=== PATIENT | female | born 1945 | race Caucasian/White ===

== ENCOUNTER → 2017-02-07 | Outpatient (CLI) | payer OTHER, BC ==
[~2017-02-07] VITALS: Ht 165.1 cm; Wt 113.4 kg
[~2017-02-07] MED LIST: BIOTIN 5000MCG PO; CITRACAL + D C1 EACH PO; FOLIC ACID1 MG PO; GLUCOSAMINE-CH1 EA44 PO; KRILL OIL500 MG PO; LO-DOSE ASPIRIN81 M2 PO; METHOTREXATE2.5 MG PO; MULTIPLE VITAM1 EAC4 PO; PLAQUENIL200 MG PO; PROBIOTIC FORM1 EAC1 PO; REMICADE10 MG/ML IV; SYNTHROID200 MCG PO; TENORETIC 501 TABLET PO; ULTRACET1 TABLET PO; VITAMIN D35000 UNIT PO
== END | disposition home or self-care (01) ==
LOC: OPR 02-01 09:00 → EDSTATUS 08:00 → OPR 08:03
PROC: 0TB03ZX Excision of Right Kidney, Percutaneous Approach, Diagnostic (ICD-10-PCS; principal; 2017-02-07)
DX: C64.1 Malignant neoplasm of right kidney, except renal pelvis (principal); C50.911 Malignant neoplasm of unspecified site of right female breast; R91.8 Other nonspecific abnormal finding of lung field; Z85.850 Personal history of malignant neoplasm of thyroid; M06.9 Rheumatoid arthritis, unspecified; D35.01 Benign neoplasm of right adrenal gland; D35.02 Benign neoplasm of left adrenal gland; Z79.899 Other long term (current) drug therapy; I10 Essential (primary) hypertension; Z87.891 Personal history of nicotine dependence; Z79.82 Long term (current) use of aspirin; Z96.641 Presence of right artificial hip joint; Z88.5 Allergy status to narcotic agent; Z80.1 Family history of malignant neoplasm of trachea, bronchus and lung; Z83.3 Family history of diabetes mellitus
CPT/HCPCS: 77012; 85610; 85730; 88305; 88341 TC; 88342 TC; J3010

== ENCOUNTER → 2017-03-13 | Outpatient (CLI) | payer MEDICARE, BC ==
[~2017-03-13] MED LIST changes: +DOCUSATE SODIU100 MG PO; +ENDOCET 5-3251 EACH PO; +LETROZOLE2.5 MG PO
== END | disposition home or self-care (01) ==
LOC: CDC 08:14
DX: Z01.810 Encounter for preprocedural cardiovascular examination (principal); C64.1 Malignant neoplasm of right kidney, except renal pelvis; I49.1 Atrial premature depolarization; R94.31 Abnormal electrocardiogram [ECG] [EKG]
CPT/HCPCS: 93000

== ENCOUNTER 2017-03-18 22:05 | Inpatient (IN) | payer OTHER, BC ==
[~2017-03-18] VITALS: Ht 165.1 cm; Wt 113.4 kg
[~2017-03-18 22:05] MED LIST changes: -DOCUSATE SODIU100 MG PO; -ENDOCET 5-3251 EACH PO
[2017-03-19 06:29] VITALS: BP 133/60
[2017-03-19] MEDS ORDERED: DOCUSATE SODIU100 MG PO (10:35)
[2017-03-19] MEDS ORDERED: ENDOCET 5-3251 EACH PO (10:35)
[2017-03-19 13:31] LABS: ANION GAP 11 MEQ/L (2-14); CHLORIDE 102 MEQ/L (99-109); POTASSIUM 3.9 MEQ/L (3.7-5.4); SAMPLE HEMOLYSIS CHECK 0; SAMPLE ICTERIC CHECK 0; SAMPLE LIPEMIA CHECK 0; SODIUM 140 MEQ/L (136-147)
[2017-03-19 13:34] LABS: HEMATOCRIT 43.1 % (36.0-46.0); MCH 31.5 PG (29.0-34.0); MCHC 33.9 G/DL (30.0-36.0); MCV 93.1 FL (83-99); RBC DIS.WIDTH-CV 14.8 % (11.8-14.6); RBC DIS.WIDTH-SD 50.4 % (39-53); RED BLOOD COUNT 4.63 M/uL (3.80-5.20)
[2017-03-19 13:37] LABS: GFR ESTIMATE (CALCULATED) > 59 mL/min/; GLUCOSE 116 mg/dL (70-99); UREA NITROGEN (BUN) 14 mg/dL (9-23)
[2017-03-19 14:05] LABS: HEMATOLOGY COMMENT 1 UNABLE TO REPORT; PLATELET COUNT UNABLE TO REPORT K/uL (156-360)
[2017-03-19 16:58] VITALS: BP 142/68
[2017-03-19 23:30] VITALS: BP 116/58
[2017-03-20 04:00] VITALS: BP 122/64
[2017-03-20 06:49] LABS: HEMATOCRIT 36.6 % (36.0-46.0); MCHC 32.5 G/DL (30.0-36.0); MCV 95.3 FL (83-99); MEAN PLAT.VOLUME 9.1 uM^3 (9.5-12.4); RBC DIS.WIDTH-CV 14.6 % (11.8-14.6); RBC DIS.WIDTH-SD 51.1 % (39-53); RED BLOOD COUNT 3.84 M/uL (3.80-5.20); WHITE BLOOD COUNT 8.4 K/uL (4.1-10.2)
[2017-03-20 06:51] LABS: PLATELET COUNT 183 K/uL (156-360)
[2017-03-20 07:16] VITALS: BP 121/72
[2017-03-20 07:16] LABS: ANION GAP 9 MEQ/L (2-14); CHLORIDE 101 MEQ/L (99-109); GFR ESTIMATE (CALCULATED) 47 mL/min/; GLUCOSE 94 mg/dL (70-99); POTASSIUM 3.9 MEQ/L (3.7-5.4); SAMPLE HEMOLYSIS CHECK 0; SAMPLE ICTERIC CHECK 0; SAMPLE LIPEMIA CHECK 0; SODIUM 140 MEQ/L (136-147); UREA NITROGEN (BUN) 17 mg/dL (9-23)
[2017-03-20 16:08] VITALS: BP 123/57
[2017-03-20 20:21] VITALS: BP 124/60
[2017-03-21 00:40] VITALS: BP 122/58
[2017-03-21 08:10] VITALS: BP 121/58
[2017-03-21 13:39] LABS: ANION GAP 8 MEQ/L (2-14); CHLORIDE 101 MEQ/L (99-109); GFR ESTIMATE (CALCULATED) 52 mL/min/; GLUCOSE 88 mg/dL (70-99); POTASSIUM 4.1 MEQ/L (3.7-5.4); SAMPLE HEMOLYSIS CHECK 0; SAMPLE ICTERIC CHECK 0; SAMPLE LIPEMIA CHECK 0; SODIUM 141 MEQ/L (136-147); UREA NITROGEN (BUN) 14 mg/dL (9-23)
[2017-03-21 15:27] VITALS: BP 124/58
[2017-03-22 00:15] VITALS: BP 137/65
[2017-03-22 08:39] VITALS: BP 129/62
[2017-03-22 15:20] VITALS: BP 131/70
[2017-03-23 00:26] VITALS: BP 113/56
[2017-03-23 07:20] VITALS: BP 119/90
[2017-03-23 15:20] VITALS: BP 137/73
[2017-03-24 01:00] VITALS: BP 105/53
[2017-03-24 07:21] VITALS: BP 110/56
== END 2017-03-24 12:45 | disposition home or self-care (01) | DRG 657 ==
LOC: ENRESERV 22:05 → 5EAST 03-19 05:17 → 2SOUTH 03-19 05:17 → ENRESERV 03-19 10:09 → 2SOUTH 03-19 11:34 → 5EAST 03-19 13:31
PROVIDERS: Urology
PROC: 0TT00ZZ Resection of Right Kidney, Open Approach (ICD-10-PCS; principal; 2017-03-19)
DX: C64.1 Malignant neoplasm of right kidney, except renal pelvis (principal); Z68.41 Body mass index [BMI] 40.0-44.9, adult; I10 Essential (primary) hypertension; Z87.891 Personal history of nicotine dependence; I71.2 Thoracic aortic aneurysm, without rupture; E66.01 Morbid (severe) obesity due to excess calories; D35.02 Benign neoplasm of left adrenal gland; D35.01 Benign neoplasm of right adrenal gland; E89.0 Postprocedural hypothyroidism; Z98.84 Bariatric surgery status; M06.9 Rheumatoid arthritis, unspecified; Z80.1 Family history of malignant neoplasm of trachea, bronchus and lung; Z85.3 Personal history of malignant neoplasm of breast; Z85.850 Personal history of malignant neoplasm of thyroid; S05.02XA Injury of conjunctiva and corneal abrasion without foreign body, left eye, initial encounter
CPT/HCPCS: 80048; 85027; 88307; J0131; J0330; J0690; J1100; J1170; J1200; J1644; J1885; J2405; J3010; J7120